=== PATIENT | male | born 1985 | race Caucasian/White ===

== ENCOUNTER 2018-12-22 11:33 | Inpatient (IN) | payer OTHER ==
[~2018-12-22] VITALS: Ht 185.4 cm; Wt 105.7 kg
[2018-12-22 11:39] VITALS: Ht 185.4 cm; Wt 105.7 kg
--- NOTE | 2018-12-22 11:39 | NUR ---
EKG IN PROGRFESS.
--- NOTE | 2018-12-22 11:55 | NUR ---
PT HERE FOR C/O HAVING CHEST PAIN SINCE THIS MORNING. REPORTS PAIN IS MILD AT THIS TIME. PT IS ON FULL MONITORS. SPEECH CLEAR; PLEASANT AFFEC. CALL LIGHT IS IN REACH. HOB UP 45 DEG
[2018-12-22 12:11] LABS: BASOPHIL % 0.6 % (0-2); PLATELET COUNT 209 x10^3mcL (130-400); RED CELL DISTRIBUTION WIDTH 13.5 % (11.5-14.5)
--- NOTE | 2018-12-22 12:44 | NUR ---
AMB BACK FROM RESTROOM WITH STEADY GAIT.
[2018-12-22 12:46] LABS: microscopic required? NO
[2018-12-22 12:55] LABS: CALCIUM 8.9 mg/dL (8.5-10.1); CARBON DIOXIDE 28.3 mmol/L (21-32); CHLORIDE SERUM 103 mmol/L (98-107); CREATININE SERUM 0.9 mg/dL (0.7-1.3); GFR1 > 60 mL/min; GLUCOSE SERUM 110 mg/dL (74-106); POTASSIUM SERUM 3.9 mmol/L (3.5-5.1); SODIUM SERUM 139 mmol/L (136-145)
[2018-12-22 13:02] LABS: ALBUMIN 3.9 g/dL (3.4-5.0); ALKALINE PHOSPHATASE 78 U/L (46-116); ALT/SGPT 42 U/L (16-63); AMYLASE 69 U/L (25-115); AST/SGOT 16 U/L (15-37); BILIRUBIN TOTAL 0.46 mg/dL (0.20-1.00); CHOLESTEROL 154 mg/dL (<200); HDL CHOLESTEROL 53 mg/dL (40-60); LIPASE 81 IU/L (73-393); TOTAL PROTEIN, SERUM 7.5 g/dL (6.4-8.2)
[2018-12-22 13:12] LABS: UA SPECIFIC GRAVITY 1.015 (1.005-1.035); urine erythrocyte NEGATIVE (NEGATIVE)
[2018-12-22 13:19] LABS: AMPHETAMINE QUAL UR NONE DETECTED (See below)
--- NOTE | 2018-12-22 13:51 | NUR ---
PT REPORTS SUDDEN SHARP CHEST PAIN MIDSTERNAL LOCATION 02/25. DR LIGHT INFORMED OF SAME
--- NOTE | 2018-12-22 13:52 | NUR ---
PT REPORTS FEELING BETTER AFTER 1ST NITRO TAB GIVEN. HELD 2ND TAB AT THIS TIME.
--- NOTE | 2018-12-22 13:52 | NUR ---
1 NITRO TAB 0.4MG SL GIVEN FOR CHEST PAIN. PAIN 6/10. GIVEN PER DR LIGHT VERBAL ORDER
--- NOTE | 2018-12-22 14:55 | NUR ---
PT IN POSITION OF COMFORT, RESP E/U, STS NO PAIN AT THIS TIME.
--- NOTE | 2018-12-22 15:57 | NUR ---
CALLED REPORT TO CULLEN
[2018-12-22 16:26] VITALS: BP 132/85
--- NOTE | 2018-12-22 16:28 | NUR ---
RECEIVED PT FROM ED VIA YAYA. ORIENTED PT TO ROOM AND SURROUNDINGS. IV NOTED TO PATENT AND INTACT. TELE 25 PLACED ON PT READING NSR. INSTRUCTED PT ON THE USE OF CALL LIGHT FOR ASSISTANCE. ENDORSED PT TO PRIMARY NURSE CULLEN
[2018-12-22 16:59] LABS: MAGNESIUM 2.1 mg/dL (1.8-2.4)
--- NOTE | 2018-12-22 18:16 | NUR ---
PT IS SITTING UP IN BED WATCHING TV. PT LOOKS TO BE IN NO ACUTE DISTRESS AT THIS TIME. IV SITE LOOKS PATENT WITH NO SIGNS OF ERYTHEMA OR SWELLING, IV FLUIDS INFUSING. BED IN LOWEST POSITIION. PT DENIES ANY PAIN AT THIS TIME. CALL LIGHT WITHIN REACH. WILL ENDORSE TO ONCOMING SHIFT.
--- NOTE | 2018-12-22 19:20 | NUR ---
AOX4. TELE #26, SR. DENIES CP. LUNGS CLEAR ON RA. PULSES PALPABLE. NO EDEMA. BOWEL SOUNDS ACTIVE. C/O EPIGASTRIC PAIN. VOIDS FREELY. AMBULATORY. SKIN INTACT. DENIES ALL OTHER PAIN. SL TO LW, PATENT, CDI. BED IN LOWEST POSITION, 2 SIDE RAILS UP, CALL LIGHT IN REACH. INSTRUCTED TO CALL FOR ASSISTANCE.
[2018-12-22 19:41] VITALS: BP 123/73
--- NOTE | 2018-12-23 01:12 | NUR ---
RESTING IN BED WITH EYES CLOSED. BREATHING EVEN AND UNLABORED. NO ACUTE DISTRESS NOTED. WILL CONTINUE TO MONITOR.
[2018-12-23 04:27] VITALS: BP 102/61
--- NOTE | 2018-12-23 06:30 | NUR ---
PT C/O 02/25 CHEST PAIN, DR. WELCH NOTIFIED. MEDICATED WITH PRN NORCO PO. WILL ENDORSE WITH ONCOMING RN.
[2018-12-23 06:41] LABS: BASOPHIL % 0.6 % (0-2); PLATELET COUNT 192 x10^3mcL (130-400); RED CELL DISTRIBUTION WIDTH 13.4 % (11.5-14.5)
--- NOTE | 2018-12-23 07:05 | NUR ---
RECEIVED PT FROM NIGHT NURSE. PT IS LAYING DOWN IN BED RESTING. PT LOOKS TO BE IN NO ACUTE DISTRESS AT THIS TIME AND STATES PAIN HAS IMPROVED SINCE HE RECEIVED THE PAIN MEDICATION. IV SITE LOOKS PATENT WITH NO SIGNS OF ERYTHEMA OR SWELLING, IV H/L. BED IN LOWEST POSITION, CALL LIGHT WITHIN REACH. WILL CONITINUE TO MONITOR.
[2018-12-23 07:26] LABS: CALCIUM 8.7 mg/dL (8.5-10.1); CARBON DIOXIDE 26.7 mmol/L (21-32); CHLORIDE SERUM 105 mmol/L (98-107); CREATININE SERUM 0.8 mg/dL (0.7-1.3); GFR1 > 60 mL/min; GLUCOSE SERUM 82 mg/dL (74-106); POTASSIUM SERUM 4.1 mmol/L (3.5-5.1); SODIUM SERUM 141 mmol/L (136-145)
[2018-12-23 09:35] VITALS: BP 115/69
--- NOTE | 2018-12-23 11:18 | NUR ---
PT IS LAYING DOWN IN BED FINISHING UP WITH THE ECHO. PT LOOKS TO BE IN NO ACUTE DISTRESS AT THIS TIME. PT STATES MINIMAL CHEST PAIN 2/10 AND DOES NOT WANT ANY MEDICATION FOR IT SINCE THE PAIN IS NOT BAD AT THIS TIME. INFORMED PT TO PRESS CALL LIGHT IF PAIN INCREASES. PT VERBALIZED UNDERSTANDING. CALL LIGHT WITHIN REACH. WILL CONTINUE TO MONITOR.
[2018-12-23 12:43] VITALS: BP 112/69
--- NOTE | 2018-12-23 12:59 | NUR ---
PT COMPLAINING OFN SHARP CHEST PAIN 5/. PT NONRADIATING AND GRADUALLY INCREASING. PT DENIES ANY NUMBESS. WILL MEDICATE ACCORDING TO EMAR.
--- NOTE | 2018-12-23 15:07 | NUR ---
PT TALKING WITH DR. JAY. DR. JAY GAVE PT OPTION OF STAYING ANOTHER NIGHT TO DO A STRESS TEST OR GOING HOME TODAY AND PT STATES WANTED TO GO HOME TODAY. WILL BEGIN ON DISCHARGE ONCE ORDERS ARE IN AND WILL INFORM PT OF THE STATUS. PT LOOKS TO BE IN NO ACUTE DISTRESS AND DENIES ANY PAIN AT THIS TIME. BED IN LOWEST POSITION. CALL LIGHT WITHIN REACH. WILL CONTINUE TO MONITOR.
[2018-12-23 16:42] VITALS: BP 112/69
--- NOTE | 2018-12-23 17:00 | NUR ---
PT AWAKE, ALERT AND ORIENTED AT TIME OF DISCHARGE. PT DISCHARGED HOME AND WALKED TO [facility] ACCOMPANIED BY CONTACT CENTER AGENT. EDUCATION PROVIDED TO PT, NO NEW PRESCIPTIONS WERE PRESCRIBED FOR THE PT. PT VERBALZIED UNDERSTANDING OF EDUCATION PROVIDED. PT DOES NOT HAVE A PCP. DR. JAY PROVIDED THE PT WITH HIS CARD TO CALL FOR A STRESS TEST, PT TOLD THAT IF DR. JAY IS NOT COVERED UNDER CURRENT INSURANCE TO CONTACT INSURANCE TO GET SET UP WITH A PCP AND BE SEEN WITHIN A WEEK. PT VERBALIZED UNDERSTANDING OF THIS INFORMATION. PT TOLD THAT IF HE HAS ANY SYMPTOMS OF THINGS THAT BROUGHT HIM INTO THE HOSPITAL TO GO BACK TO THE ER. PT VERBALIZED UNDERSTANDING. IV CATHETER REMOVED AND FULLY INTACT, TELE 26 REMOVED, CLEANED AND RETURNED TO TELE STATION. BELONGINGS WITH PT.
== END 2018-12-23 17:25 | disposition home or self-care (01) | DRG 206 ==
LOC: ED 11:33 → DU 14:59
PROVIDERS: Emergency Medicine; ADMIT Family Medicine
DX: M94.0 Chondrocostal junction syndrome [Tietze] (principal); E83.39 Other disorders of phosphorus metabolism; Z87.891 Personal history of nicotine dependence; Z90.49 Acquired absence of other specified parts of digestive tract; Z82.49 Family history of ischemic heart disease and other diseases of the circulatory system
CPT/HCPCS: 83880; G0480; J7030; Q0092

== ENCOUNTER 2019-05-01 13:20 | Emergency (ER) | payer OTHER ==
[~2019-05-01] VITALS: Ht 185.4 cm; Wt 108.4 kg
[2019-05-01 13:23] VITALS: Ht 185.4 cm; Wt 108.4 kg
[2019-05-01 14:34] VITALS: BP 129/78
== END 2019-05-01 14:34 | disposition home or self-care (01) ==
LOC: ED 13:20
DX: F41.9 Anxiety disorder, unspecified (principal); R07.89 Other chest pain
CPT/HCPCS: J2060

== ENCOUNTER 2019-05-23 15:05 | Emergency (ER) | payer OTHER ==
[~2019-05-23] VITALS: Ht 185.4 cm; Wt 107.5 kg
[2019-05-23 15:11] VITALS: Ht 185.4 cm; Wt 107.5 kg
[2019-05-23 16:33] LABS: BASOPHIL % 0.8 % (0-2); PLATELET COUNT 208 x10^3mcL (130-400); RED CELL DISTRIBUTION WIDTH 13.6 % (11.5-14.5)
[2019-05-23 16:46] LABS: CALCIUM 8.2 mg/dL (8.5-10.1); CARBON DIOXIDE 24.7 mmol/L (21-32); CHLORIDE SERUM 107 mmol/L (98-107); CREATININE SERUM 0.9 mg/dL (0.7-1.3); GFR1 > 60 mL/min; GLUCOSE SERUM 96 mg/dL (74-106); POTASSIUM SERUM 3.5 mmol/L (3.5-5.1); SODIUM SERUM 142 mmol/L (136-145)
[2019-05-23 17:33] VITALS: BP 137/58
== END 2019-05-23 17:33 | disposition home or self-care (01) ==
LOC: ED 15:05
PROVIDERS: Emergency Medicine
DX: R07.89 Other chest pain (principal); F41.9 Anxiety disorder, unspecified; Z90.89 Acquired absence of other organs
CPT/HCPCS: 36415

== ENCOUNTER 2019-06-15 02:58 | Emergency (ER) | payer OTHER ==
[~2019-06-15] VITALS: Ht 185.4 cm; Wt 107.0 kg
[2019-06-15 03:02] VITALS: Ht 185.4 cm; Wt 107.0 kg
[2019-06-15 03:51] LABS: BASOPHIL % 1.5 % (0-2); PLATELET COUNT 207 x10^3mcL (130-400); RED CELL DISTRIBUTION WIDTH 13.8 % (11.5-14.5)
[2019-06-15 04:05] LABS: CARBON DIOXIDE 25.4 mmol/L (21-32); CHLORIDE SERUM 106 mmol/L (98-107); CREATININE SERUM 0.8 mg/dL (0.7-1.3); GFR1 > 60 mL/min; GLUCOSE SERUM 95 mg/dL (74-106); POTASSIUM SERUM 3.6 mmol/L (3.5-5.1); SODIUM SERUM 141 mmol/L (136-145)
[2019-06-15 04:06] LABS: CALCIUM 8.4 mg/dL (8.5-10.1)
[2019-06-15 04:12] LABS: ALBUMIN 3.9 g/dL (3.4-5.0); ALKALINE PHOSPHATASE 86 U/L (46-116); ALT/SGPT 34 U/L (16-63); AST/SGOT 15 U/L (15-37); BILIRUBIN TOTAL 0.38 mg/dL (0.20-1.00); TOTAL PROTEIN, SERUM 7.2 g/dL (6.4-8.2)
[2019-06-15 05:30] VITALS: BP 130/78
== END 2019-06-15 05:30 | disposition home or self-care (01) ==
LOC: ED 02:58
PROVIDERS: Emergency Medicine
DX: R07.89 Other chest pain (principal); R20.2 Paresthesia of skin; F41.9 Anxiety disorder, unspecified; Z90.89 Acquired absence of other organs
CPT/HCPCS: 36415; Q0092

== ENCOUNTER 2019-12-15 13:37 | Emergency (ER) | payer OTHER ==
[~2019-12-15] VITALS: Ht 185.4 cm; Wt 105.2 kg
[2019-12-15 13:44] VITALS: Ht 185.4 cm; Wt 105.2 kg
[2019-12-15 16:24] VITALS: BP 123/76
== END 2019-12-15 16:24 | disposition home or self-care (01) ==
LOC: ED 13:37
DX: R20.0 Anesthesia of skin (principal); Z90.89 Acquired absence of other organs
CPT/HCPCS: 82962